=== PATIENT | female | born 1970 | race Two or more races ===

== ENCOUNTER 2019-09-10 08:58 | Day surgery (SDC) | payer BC ==
[2019-09-10] VITALS (9 sets, daily range): BP systolic 111–131; BP diastolic 70–78
[~2019-09-10] VITALS: Ht 160 cm; Wt 63.5 kg
[~2019-09-10 08:58] MED LIST: ceFAZolin sod 1 GM in NS 55 ML IVPB ONE
[2019-09-10] MEDS ORDERED: Lidocaine 1% 10mg/ml/Epi 0.005mg/ml 30ml vial INJ ONE (09:07)
[2019-09-10] MEDS ORDERED: NeoSporin Gu Irrig 1ml Amp IRRIG ONE (09:08)
[2019-09-10] MEDS ORDERED: Bacitracin 50000 Units Vial ONE (09:08)
[2019-09-10] MEDS ORDERED: Sulfanilamide 15% Cream - 78gm VAGIN ONE (09:15)
[2019-09-10] MEDS ORDERED: ProvayBlue 5mg/ml 10ml amp INJ ONE (09:15)
[2019-09-10] MEDS ORDERED: LR 1000ml 1,000 ML IVLG SCH (09:41)
[2019-09-10] MEDS ORDERED: Midazolam 2mg/2ml Inj IVP PRN (09:45)
[2019-09-10] MEDS ORDERED: Acetaminophen (Non formulary) 100 ML IV ONE (09:45)
[2019-09-10] MEDS ORDERED: HYDROcodone/Acetamin 5/325 tab ORAL PRN ×2 (09:45→23:01)
[2019-09-10] MEDS ORDERED: Metoclopramide 10mg/2ml Inj IVP PRN (09:45)
[2019-09-10] MEDS ORDERED: fentaNYL 100 mcg/2 mL IV PRN (09:45)
[2019-09-10] MEDS ORDERED: LORazepam Inj 2mg/ml 1ml IV PRN (09:45)
[2019-09-10] MEDS ORDERED: Ketorolac 30mg Inj IV PRN ×2 (09:45)
[2019-09-10] MEDS ORDERED: Atropine Sulfate 0.4mg/ml inj IVP PRN (09:45)
[2019-09-10] MEDS ORDERED: DiphenhydrAMINE 50mg/ml Inj IVP PRN (09:45)
[2019-09-10] MEDS ORDERED: HYDROcodone/Acetamin 7.5/325 tab ORAL PRN (09:45)
[2019-09-10] MEDS ORDERED: Hydromorphone 0.5mg/0.5ml inj IVP PRN (09:45)
[2019-09-10] MEDS ORDERED: Labetalol 5mg/ml 20ml vial IV PRN (09:45)
[2019-09-10] MEDS ORDERED: Meperidine 25mg/0.5ml Inj (FOR RIGORS ONLY) IV PRN (09:45)
[2019-09-10] MEDS ORDERED: oxyCODONE HCL/Acetaminophen 5/325mg ORAL PRN (10:00)
[2019-09-10] MEDS ORDERED: LINZESS145 MCG PO (10:14)
--- NOTE | 2019-09-10 10:23 | Pre-Procedure Note/Attestation ---
Pre-Procedure Note/Attestation Complete Prior to Procedure Planned Procedure: not applicable Procedure Narrative: distal urethrectomy cystoscopy Indications for Procedure Pre-Operative Diagnosis: urethral polyp Attestation I attest that I discussed the nature of the procedure; its benefits; risks and complications; and alternatives (and the risks and benefits of such alternatives ), prior to the procedure, with the patient (or the patient's legal underwriting service representative). I attest that, if there was a reasonable possibility of needing a blood transfusion, the patient (or the patient's legal underwriting service representative) was given the [facility] standardized written summary, pursuant to the [employer] [place] Blood Safety Act ([place] Health and Safety Code # 1645, as amended). I attest that I re-evaluated the patient just prior to the surgery and that there has been no change in the patient's H&P, except as documented below: Donald Puente MD Sep 10, 2019 10:23
--- NOTE | 2019-09-10 10:28 | Anethesia Preoperative Eval ---
Anesthesia Pre-op PMH/ROS General Date of Evaluation: Sep 10, 2019 Time of Evaluation: 10:27 Anesthesiologist: James ASA Score: ASA 2 Mallampati Score Class I : Soft palate, uvula, fauces, pillars visible Class II: Soft palate, uvula, fauces visible Class III: Soft palate, base of uvula visible Class IV: Only hard plate visible Mallampati Classification: Class II Surgeon: Kwame Diagnosis: Urethral Stricture Surgical Procedure: Distal Urethectomy Anesthesia History: none Family History: no anesthesia problems Allergies: Coded Allergies: No Known Allergies (Unverified , 09/10/19) Medications: see eMAR Patient NPO?: Yes Past Medical History Gastrointestinal/Genitourinary: 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 Exam Physician Exam Last Vital Signs Date Time Temp Pulse Resp B/P (MAP) Pulse Ox O2 Delivery O2 Flow Rate FiO2 09/10/19 10:08 Room Air 09/10/19 10:04 98.2 66 18 111/72 96 Constitutional: NAD Neurologic: CN 2-12 intact Cardiovascular: RRR Respiratory: CTA Gastrointestinal: S/NT/ND Airway Exam Mallampati Score: Class II MO: full ROM: full Teeth: intact Anesthesia Pre-op A/P Labs Urine Test Test 09/10/19 09:15 Urine HCG, Qualitative Negative (NEGATIVE) Risk Assessment & Plan Assessment: ASA 2 Plan: GA, SED, GlideScope Go Status Change Before Surgery: No Pre-Antibiotics Dru Gram Acef IV Given Within 1 Hr of Incision: Yes Time Given: 10:36 Edin Ramirez MD Sep 10, 2019 10:28
[2019-09-10] MEDS ORDERED: Lidocaine 1% MPF 10mg/ml 5ml ONE (10:29)
[2019-09-10] MEDS ORDERED: Dexamethasone 4mg/ml vial ONE (10:29)
[2019-09-10] MEDS ORDERED: Propofol 200mg/20ml IV ONE (10:29)
[2019-09-10] MEDS ORDERED: LR 1000ml ONE (10:30)
[2019-09-10] MEDS ORDERED: NS Irrig 1000ml ONE (10:30)
[2019-09-10] MEDS ORDERED: Sterile Water Irrig 1000ml IRRIG ONE (10:30)
[2019-09-10] MEDS ORDERED: Rocuronium Bromide 50mg/5ml Inj IV ONE (10:30)
--- NOTE | 2019-09-10 10:35 | Brief Operative Note ---
Immediate Post Operative Note Operative Note Pre-op Diagnosis: urethral polyp Procedure: distal urethrectomy cystoscopy Post-op Diagnosis: same Post-op Diagnosis: same as pre-op Surgeon: ben puente Anesthesia: general Specimen: yes Complications: none Condition: stable Fluids: 500 Estimated Blood Loss: minimal Implant(s) used?: No Donald Puente MD Sep 10, 2019 10:35
[2019-09-10] MEDS ORDERED: Ketorolac 30mg Inj ONE (11:09)
--- NOTE | 2019-09-10 11:10 | Immediate Post-Op Evaluation ---
Immediate Post-Op Evalulation Immediate Post-Op Evalulation Procedure: Distal Urethectomy Date of Evaluation: Sep 10, 2019 Time of Evaluation: 11:50 IV Fluids: 800 LR Blood Products: 0 Estimated Blood Loss: 10 Urinary Output: 0 Blood Pressure Systolic: 131 Blood Pressure Diastolic: 74 Pulse Rate: 69 Respiratory Rate: 16 O2 Sat by Pulse Oximetry: 100 Temperature (Fahrenheit): 97.6 Pain Score (1-10): 2 Nausea: No Vomiting: No Complications 0 Patient Status: awake, reacts, patent, extubated, none Hydration Status: adequate Dru Gram Ancef IV Given Within 1 Hr of Incision: Yes Time Given: 10:36 Edin Ramirez MD Sep 10, 2019 11:10
--- NOTE | 2019-09-10 11:10 | 48 Hour Post Anesthesia Eval ---
Post Anesthesia Evaluation Procedure: Distal Urethectomy Date of Evaluation: Sep 10, 2019 Time of Evaluation: 14:02 Blood Pressure Systolic: 110 0: 64 Pulse Rate: 69 Respiratory Rate: 18 Temperature (Fahrenheit): 98.2 O2 Sat by Pulse Oximetry: 100 Airway: patent Nausea: No Vomiting: No Pain Intensity: 2 Hydration Status: adequate Cardiopulmonary Status: Stable Mental Status/LOC: patient returned to baseline Follow-up Care/Observations: 0 Post-Anesthesia Complications: 0 Follow-up care needed: ready to discharge Edin Ramirez MD Sep 10, 2019 11:10
[2019-09-10] MEDS ORDERED: Glycopyrrolate 0.2mg/ml 1ml Vial ONE (11:17)
[2019-09-10] MEDS ORDERED: Neostigmine 1mg/ml 10ml Inj ONE (11:17)
[2019-09-10] MEDS ORDERED: Flumazenil 0.1mg/ml 5ml Inj IV ONE (11:22)
[2019-09-10] MEDS ORDERED: D5 1/2NS 1,000 ML IV SCH (23:01)
[2019-09-10] MEDS ORDERED: HYDROmorphone 1mg/ml Carpuject SUBQ PRN (23:01)
[2019-09-10] MEDS ORDERED: Tylenol #3 tab (300mg/30mg) ORAL PRN (23:01)
--- NOTE | 2019-09-12 23:00 | Operative Note - Dictated ---
DATE OF OPERATION: 09/10/2019 PREOPERATIVE DIAGNOSIS: Distal urethral polyp. POSTOPERATIVE DIAGNOSIS: Distal urethral polyp. OPERATIONS: Distal with removal of the polyp tissue, wound reconstruction at the distal urethra, polypectomy, cystoscopy, John catheter placement. ASSOCIATE PROFESSOR OF FORESTRY: Donald Puente M.D. ANESTHESIA: General. FINDINGS: Polyps of the distal urethra and some polyps on the lateral nice of the vaginal vault. INDICATIONS FOR SURGERY: The patient was found to have multiple polyps in the vagina including the distal urethra. Treatment options were explained to her in great length including all potential complications of the proposed procedure. She understands the nature of them and signed the consent. DESCRIPTION OF PROCEDURE: She was brought to the operating room, placed in lithotomy position, prepped and draped in standard fashion. Under general anesthesia, the urethra was retracted and polyps were exposed using a scalpel. Polyps were removed including part of the distal urethra. Using interrupted 4-0 Vicryl sutures, urethra was reconstructed on the distal posterior end a 16-Tamazight John catheter. Further cystoscopy showed no evidence of urethral polyps. Small polyps in the vagina were also removed using sharp and blunt dissection and coagulated. The patient tolerated the procedure well. Vagina was packed. John was placed. The patient was transferred to the recovery room in stable condition. No evidence of complications. Donald Puente M.D. DR: Amos JOB#: [id number] CC:
== END 2019-09-10 13:30 | disposition home or self-care (01) ==
LOC: SUR 08:58
DX: N36.2 Urethral caruncle (principal); N84.2 Polyp of vagina
CPT/HCPCS: 52310; 57135; 81025; J0131; J0690; J1100; J1885; J2250; J2405; J2704; J2710; J3010; J7120; Q9968; 94003; 94150